=== PATIENT | female | born 1935 | race Hispanic/Latino ===

== ENCOUNTER → 2018-05-10 | Outpatient (CLI) | payer OTHER, MEDICARE ==
[~2018-05-10] MED LIST: GEMF600T4 PO; IOHEXOL 350 MG/ML 100ML INFUS..BTL IV ONE; IOHEXOL-350 75 ML VIAL IV ONE; METF-444 PO; SUCR1TAB28 PO; VIT D3 PO
== END | disposition home or self-care (01) ==
LOC: RAH 09:08
PROVIDERS: ATTEND Family Medicine
DX: M48.54XA Collapsed vertebra, not elsewhere classified, thoracic region, initial encounter for fracture (principal); I26.99 Other pulmonary embolism without acute cor pulmonale
CPT/HCPCS: 71275; Q9967

== ENCOUNTER → 2019-02-28 | Outpatient (CLI) | payer MEDICARE ==
[~2019-02-28] MED LIST changes: -GEMF600T4 PO; +GEMF600T5 PO; -IOHEXOL 350 MG/ML 100ML INFUS..BTL IV ONE; -IOHEXOL-350 75 ML VIAL IV ONE
== END | disposition home or self-care (01) ==
LOC: RAH 14:16
PROVIDERS: ATTEND Otolaryngology Plastic Surgery within the Head & Neck
DX: K11.20 Sialoadenitis, unspecified (principal)
CPT/HCPCS: 76536

== ENCOUNTER 2022-05-27 07:03 | Emergency (ER) | payer OTHER, MEDICARE ==
[~2022-05-27] VITALS: Ht 154.9 cm; Wt 65.8 kg
[~2022-05-27 07:03] MED LIST changes: -GEMF600T5 PO; +GEMF600T89 PO
[2022-05-27 07:33] LABS: BASOPHILS % (AUTO) 0.2 % (0.0-5.0); LYMPHOCYTES % (AUTO) 21.5 % (21.0-51.0); MEAN CORPUSCULAR HGB CONC 33.4 g/dL (32.0-36.0); MEAN CORPUSCULAR VOLUME 89.6 fL (79-99); MONOCYTES % (AUTO) 9.2 % (3.0-13.0); NEUTROPHILS % (AUTO) 67.1 % (40.0-77.0); PLATELET COUNT (AUTO) 188 K/uL (130-400); RED BLOOD CELL COUNT(AUTO) 4.24 MIL/uL (4.00-5.50); WHITE BLOOD COUNT (AUTO) 4.9 K/uL (4.8-10.8)
[2022-05-27 07:49] VITALS: BP 145/82
[2022-05-27 07:59] LABS: APPEARANCE,URINE CLEAR (CLEAR); BILIRUBIN,URINE NEGATIVE (NEGATIVE); COLOR,URINE YELLOW (YELLOW); GLUCOSE, URINE (UA) NEGATIVE (NEGATIVE); KETONES,URINE NEGATIVE (NEGATIVE); LEUKOCYTE ESTERASE ,URINE NEGATIVE Leu/uL (NEGATIVE); NITRATE,URINE NEGATIVE (NEGATIVE); OCCULT BLOOD,URINE NEGATIVE (NEGATIVE); PROTEIN,URINE 20 mg/dL (NEGATIVE); UROBILINOGEN,URINE 0.2 mg/dL (0.2-1.0)
[2022-05-27 08:05] LABS: CREATININE 0.7 mg/dL (0.5-1.5); POTASSIUM 3.5 mmol/L (3.5-5.1)
[2022-05-27 08:20] LABS: ALBUMIN 3.8 g/dL (3.5-5.0)
[2022-05-27] MEDS ORDERED: PANTOPRAZOLE 40 MG/VIAL IVP ONE (08:30)
[2022-05-27] MEDS ORDERED: MECLIZINE HCL 25 MG TABLET PO ONE (08:30)
[2022-05-27] MEDS ORDERED: NACL IV ONE (08:30)
[2022-05-27] MEDS ORDERED: ONDANSETRON 4MG INJ IVP ONE (08:30)
[2022-05-27] MEDS ORDERED: CALCIUM GLUC 1GM/10ML VIAL IVPB ONE (10:00)
[2022-05-27] MEDS ORDERED: ONDA4TAB10 PO (13:46)
[2022-05-27] MEDS ORDERED: MECL-160 PO (13:46)
[2022-05-27] MEDS ORDERED: FAMO-136 PO (13:50)
== END 2022-05-27 13:57 | disposition home or self-care (01) ==
LOC: EDH 07:03
DX: H81.10 Benign paroxysmal vertigo, unspecified ear (principal); R11.2 Nausea with vomiting, unspecified; R10.13 Epigastric pain; E83.51 Hypocalcemia; Z20.822 Contact with and (suspected) exposure to COVID-19; Z79.899 Other long term (current) drug therapy
CPT/HCPCS: 99284; 96365; 70450; 71045; 96375; 87635; 96361; 82550; 83735; 83874; 84484; 82330; 80053; 83880; 85025; 87040 ×2; 87804 ×2; 83605; 81003; 36415; 93005; C9803; J0610; J2405; C9113; J7050

== ENCOUNTER → 2022-12-07 | Outpatient (CLI) | payer OTHER, MEDICARE ==
[~2022-12-07] MED LIST changes: +FAMO-136 PO; +MECL-160 PO; +ONDA4TAB10 PO
== END | disposition home or self-care (01) ==
LOC: RAH 12:12
PROVIDERS: ATTEND Internal Medicine
DX: S09.90XA Unspecified injury of head, initial encounter (principal); G31.9 Degenerative disease of nervous system, unspecified; R51.9 Headache, unspecified; W19.XXXA Unspecified fall, initial encounter; X58.XXXA Exposure to other specified factors, initial encounter; Y93.89 Activity, other specified; Y92.89 Other specified places as the place of occurrence of the external cause; Y99.8 Other external cause status
CPT/HCPCS: 70450

== ENCOUNTER 2024-06-30 20:30 | Emergency (ER) | payer OTHER, MEDICARE ==
[~2024-06-30] VITALS: Ht 160 cm; Wt 61.2 kg
[~2024-06-30 20:30] MED LIST changes: -MECL-160 PO; +MECL-302 PO; +ONDA-243 PO; -ONDA4TAB10 PO
[2024-06-30] MEDS: ondanSETRON 4MG INJ IVP STA (20:49)
[2024-06-30] MEDS: FENTanyl CITRate PF 50 MCG/1 ML 2ML VIAL IVP STA (20:50)
--- NOTE | 2024-06-30 22:34 | HMCIMG ---
CT HEAD/BRAIN W/O CONTRAST HISTORY: Trauma COMPARISON: None TECHNIQUE: Multiple sequential axial images of the head were obtained from the base of the skull through vertex. Patient was not given contrast through intravenous route. FINDINGS: Left parietal scalp soft tissue swelling is seen. The ventricles and extraventricular CSF spaces are dilated consistent with cerebral atrophy. Nonspecific white matter changes seen. There is no midline shift, mass effect or herniation. No acute intracranial bleed is seen. Visualized portion of the paranasal sinuses are grossly within normal limits. There is left maxillary sinus polyp versus mucus retention cyst IMPRESSION: 1. No acute intracranial bleed is seen. 2. Atrophy with white matter changes. CT was performed with one or more following dose reduction techniques: automated exposure control, adjustment of the mA and kv according to patient's size, or use of a iterative reconstruction technique.
--- NOTE | 2024-06-30 22:35 | HMCIMG ---
CT CERVICAL SPINE W/O CONTRAST HISTORY: Trauma COMPARISON: None TECHNIQUE: Multiple sequential axial images of the cervical spine were obtained including post processing sagittal and coronal reconstruction images. Patient was not given contrast through intravenous route. FINDINGS: There are degenerative changes with cervical spine spondylosis. Disc space narrowings are seen at C2-3 through C6-7 levels. There is atherosclerosis. There is straightening of normal lordotic cervical curvature which may be related to muscle spasm or positioning. There is no loss of vertebral height. Evaluation for disc and cord pathology is limited with CT study. No evidence of fracture or dislocation is seen. IMPRESSION: 1. No fracture is seen. DJD. CT was performed with one or more following dose reduction techniques: automated exposure control, adjustment of the mA and kv according to patient's size, or use of a iterative reconstruction technique.
--- NOTE | 2024-06-30 23:11 | ERN ---
ED Note History of Present Illness Stated Complaint: HEMATOMA BACK OF HEAD S/P FALL Chief Complaint: Mechanical Fall Time Seen by MD: 20:32 Time Seen by Midlevel: 20:36 Dictation: 88-year-old with a history of cholesterol coming in complaining of headache and neck pain after a fall. Patient states she was carrying some boxes tripped and fell landing on her left side. Patient denies any LOC, does not take any blood thinners is only taking baby aspirin daily. Patient has a hematoma and mild ecchymosis to the crown of the head. No other complaints Allergies: Coded Allergies: No Known Drug Allergies (Verified Allergy, Unknown, 12/09/13) Home Meds Active Scripts Famotidine (Pepcid) 20 Mg Tablet, 20 MG PO DAILY, #15 TAB 0 Refills Prov:ELOISE MAYORGA MD 05/27/22 Ondansetron (Ondansetron Odt) 4 Mg Tab.rapdis, 4 MG PO TID PRN for NAUSEA, #15 TAB 0 Refills Prov:ELOISE MAYORGA MD 05/27/22 Meclizine HCl (Meclizine HCl) 25 Mg Tablet, 25 MG PO TID PRN for DIZZINESS, #30 TAB 0 Refills Prov:ELOISE MAYORGA MD 05/27/22 Reported Medications [Vit D3] No Conflict Check, 1000 PO DAILY 08/29/16 Gemfibrozil (Gemfibrozil) 600 Mg Tablet, 600 MG PO BID, TAB 08/29/16 Metformin HCl (Metformin HCl) 500 Mg Tablet, 500 MG PO BID, TAB 08/29/16 Sucralfate (Carafate) 1 Gm Tablet, 1 GM PO QID, TAB 08/29/16 Past Medical History Past Medical History: High Cholesterol Surgical History: None Review of System Dictation Constitutional: Negative for fever,chills, and weight loss Eyes: Negative for injury, pain,redness, and discharge ENT: Negative for injury,pain or swelling Cardiovascular: Negative for chest pain, palpitations, and edema Respiratory: Negative for shortness of breath, cough, and wheezing, Abdomen/GI: Negative for abdominal pain, nausea, vomiting, diarrhea, and constipation Back: Negative for injury and pain : Negative for injury, bleeding and discharge MS/Extremity: Negative for injury and deformity Skin: Negative for rash, and discoloration Neuro: Positive for headache, no weakness, no numbness, no tingling, and no seizure Psych: Negative for suicide ideation, homicidal ideation, and hallucinations Review of Systems: was completed Initial Vital Sign VS Vital Signs Date Time Temp Pulse Resp B/P (MAP) Pulse Ox O2 Delivery O2 Flow Rate FiO2 06/30/24 20:31 99.0 88 14 163/80 96 Room Air* 0 21 Physical Exam Dictation General: awake, alert, NAD Head/Face: Normocephalic, hematoma noted to the crown of the head with mild ecchymosis Eyes: PERRL, EOMI, vision at baseline ENT: oral cavity clear, TMs clear, no signs of infection Neck: Trachea midline, supple, no nuchal rigidity Cardiovascular: RRR, normal S1/S2, No MRGs, no JVD Respiratory: CTAB, no respiratory distress, No rales or wheezes Abdomen: Soft, non-tender, non-distended, normal bowel sounds, no guarding or rebound. Skin: Warm, dry, normal turgor, no rash MS/Extremity: Pulses equal, no cyanosis, neurovascular intact, FROM Neuro: COAx4, GCS 15, strength 5/5, CN 2-12 intact, normal cerebellar exam, normal gait, Psych: Normal behavior, mood, and affect normal Results (Laboratory/Radiology) CT Scan Comment: [address] [id number] IMAGING REPORT Signed PATIENT: SERAFIN TOLBERT MR#: [id number] : 1935 SEX: F AGE: 88 LOCATION: [facility] ORDER 37 STATUS: REG ER REPORT#: [id number] SERVICE 35 REASON: trauma ORDERING PHYSICIAN: ELIAS BILLS NP PROCEDURE: HEAD WO - CT HEAD/BRAIN W/O CONTRAST CT HEAD/BRAIN W/O CONTRAST HISTORY: Trauma COMPARISON: None TECHNIQUE: Multiple sequential axial images of the head were obtained from the base of the skull through vertex. Patient was not given contrast through intravenous route. FINDINGS: Left parietal scalp soft tissue swelling is seen. The ventricles and extraventricular CSF spaces are dilated consistent with cerebral atrophy. Nonspecific white matter changes seen. There is no midline shift, mass effect or herniation. No acute intracranial bleed is seen. Visualized portion of the paranasal sinuses are grossly within normal limits. There is left maxillary sinus polyp versus mucus retention cyst IMPRESSION: 1. No acute intracranial bleed is seen. 2. Atrophy with white matter changes. CT was performed with one or more following dose reduction techniques: automated exposure control, adjustment of the mA and kv according to patient's size, or use of a iterative reconstruction technique. DICTATED BY: MAURICE SILVA MD DATE: 06/30/242228 ELECTRONICALLY SIGNED BY: MAURICE SILVA MD DATE: 06/30/242233 [address] [id number] IMAGING REPORT Signed PATIENT: SERAFIN TOLBERT MR#: [id number] : 1935 SEX: F AGE: 88 LOCATION: [facility] ORDER 37 STATUS: REG [facility] REPORT#: [id number] SERVICE 35 REASON: trauma ORDERING PHYSICIAN: ELIAS BILLS NP PROCEDURE: C SPIN WO - CT CERVICAL SPINE W/O CONTRAST CT CERVICAL SPINE W/O CONTRAST HISTORY: Trauma COMPARISON: None TECHNIQUE: Multiple sequential axial images of the cervical spine were obtained including post processing sagittal and coronal reconstruction images. Patient was not given contrast through intravenous route. FINDINGS: There are degenerative changes with cervical spine spondylosis. Disc space narrowings are seen at C2-3 through C6-7 levels. There is atherosclerosis. There is straightening of normal lordotic cervical curvature which may be related to muscle spasm or positioning. There is no loss of vertebral height. Evaluation for disc and cord pathology is limited with CT study. No evidence of fracture or dislocation is seen. IMPRESSION: 1. No fracture is seen. DJD. CT was performed with one or more following dose reduction techniques: automated exposure control, adjustment of the mA and kv according to patient's size, or use of a iterative reconstruction technique. DICTATED BY: MAURICE SILVA MD DATE: 06/30/242230 ELECTRONICALLY SIGNED BY: MAURICE SILVA MD DATE: 06/30/242234 ED Course ED Course Orders Procedure Category Date Status Time Ct Head/Brain W/O CT 06/30/24 Resulted Contrast 20:36 Ct Cervical Spine W/O CT 06/30/24 Resulted Contrast 20:36 Fentanyl Citrate Pf PHA 06/30/24 Complete 0.05 Mg/Ml (Fentanyl 20:36 Ondansetron 4mg Inj PHA 06/30/24 Complete (Zofran 4mg Inj) 20:36 Current Medications Medications (Trade) Dose Ordered Sig/Flora Route PRN Reason Start Time Stop Time Status Last Admin Dose Admin Fentanyl Citrate (FENTanyl CITRate PF 50 MCG/ 1 ML 2ML VIAL) 50 mcg ONCE STAT IVP 06/30/24 20:36 06/30/24 20:38 DC 06/30/24 20:50 Ondansetron HCl (zoFRAN 4MG INJ) 4 mg ONCE STAT IVP 06/30/24 20:36 06/30/24 20:38 DC 06/30/24 20:49 Vital Signs Date Time Temp Pulse Resp B/P (MAP) Pulse Ox O2 Delivery O2 Flow Rate FiO2 06/30/24 21:08 99.0 84 18 136/54 98 Room Air* 0 21 06/30/24 20:32 99.0 88 14 163/80 96 Room Air 06/30/24 20:31 99.0 88 14 163/80 96 Room Air* 0 21 Medical Decision Making MDM MDM: 88-year-old with a history of cholesterol coming in complaining of headache and neck pain after a fall. Patient states she was carrying some boxes tripped and fell landing on her left side. Patient denies any LOC, does not take any blood thinners is only taking baby aspirin daily. Patient has a hematoma and mild ecchymosis to the crown of the head. No other complaints patient has no nausea, no vomiting, she is neurologically intact. Full range of motion to all extremities. No pain on palpation to the hip area, no leg shortening or rotation. CT scan of the head and C-spine within normal range, no acute findings. After pain medication patient states she does feel better. Educated that CTs T-spine were negative. Educated on precautions to take for head injuries like return to the ER if you have any nausea or vomiting or altered mental status. Educated also family member on signs and symptoms to return the patient back to the ER. Both verbalized understanding, answered all questions. Differential diagnosis: ICH, hematoma, contusion, concussion, C-spine injury Rationale: Tests considered and ordered secondary to shared decision making include: Previous outside records reviewed: Old ER visits. Risk of complication and/or morbidity or mortality of patient management: None Medications-Per medication reconciliation Need for hospitalization: Patient does not meet criteria for hospitalization. Need for emergency major/minor surgery: No There are no social concerns with this patient. Prescription drug management Prescriptions will include symptomatic care Patient's prior external medical records from other ER visits were reviewed by me as indicated. Prior testing and results from previous visits were reviewed. Prior tests were taken into account with medical decision making and resource utilization, independent historian/historians were used to obtain complete medical history. I independently interpreted the test that were performed, results were reviewed by me and considered findings on radiology if ordered. Medical management and examination interpretation discussions were had by me with other qualified healthcare professionals as indicated for the patient's care. DX & DISP Disposition: Discharge Departure Impression: Primary Impression: Fall Additional Impressions: Head contusion, Traumatic hematoma of head Condition: Stable Additional Instructions: Your CT scans are negative. You can take Tylenol for pain management [id number]. If you start to develop any nausea or vomiting or start to feel dizzy or confused please return back to the emergency room. Follow up with your primary doctor in 1-2 days. Referrals: ROLF GAMING MD (PCP) Time of Disposition: 23:09 I have reviewed the case, and I agree with, Diagnosis and Plan ELIAS BILLS NP Jun 30, 2024 23:11
[2024-06-30 23:27] VITALS: BP 132/58; PULSE 79; RESP 18; TEMP 98.6; O2SAT 97
== END 2024-06-30 23:29 | disposition home or self-care (01) ==
LOC: EDH 20:30 → EDBD 20:30 → EDH 23:29
DX: S00.93XA Contusion of unspecified part of head, initial encounter (principal); M54.2 Cervicalgia; E78.00 Pure hypercholesterolemia, unspecified; Z79.84 Long term (current) use of oral hypoglycemic drugs; W18.39XA Other fall on same level, initial encounter; Y93.89 Activity, other specified; Y92.89 Other specified places as the place of occurrence of the external cause; Y99.8 Other external cause status
CPT/HCPCS: 99284; 70450; 96374; 96375; 72125; J3010; J2405